=== PATIENT | female | born 1985 | race Caucasian/White ===

== ENCOUNTER → 2018-11-30 | Outpatient (CLI) | payer BC, MEDICAID ==
--- NOTE | 2018-11-30 14:24 | Diagnostic Imaging Report ---
INDICATION: Palpable lump in the right breast. Patient also describes skin discoloration. COMPARISON: No prior mammograms are available for comparison. This is a baseline study. TECHNIQUE: 2D and 3D bilateral diagnostic mammography was performed with CAD. FINDINGS: Scattered fibroglandular densities are identified bilaterally. A lobulated circumscribed density in the upper outer right breast approximately 12 cm from the nipple is noted. This could represent the area of palpable abnormality. This most resembles a lymph node. No other masses are seen. No suspicious microcalcifications are identified. The axillae are unremarkable. IMPRESSION: There is a probable intramammary lymph node in the upper outer right breast 12 cm from the nipple. Further evaluation of this area with ultrasound is recommended for confirmation. The study is otherwise unremarkable. ACR BI-RADS Category 0: Incomplete. (Needs additional imaging evaluation). Result letter will be mailed to the patient. Note: At least 10% of breast cancer is not imaged by mammography. Dictated by: Dictated on workstation # [id number]
--- NOTE | 2018-11-30 14:26 | Diagnostic Imaging Report ---
INDICATION: Palpable lump in the right breast. COMPARISON: Correlation is made with the diagnostic mammogram from earlier this same day. TECHNIQUE: Sonographic interrogation of the upper outer right breast was performed. FINDINGS: There is a lymph node at the 10 o'clock location of the right breast approximately 14 cm from the nipple. This measures 1.7 x 1.1 x 1.5 cm. This does contain a fatty hilum. This corresponds in size and location to the mammographic density. No other sonographic abnormalities are seen. IMPRESSION: An intraparenchymal lymph node at the 10 o'clock location of the right breast 14 cm from the nipple corresponds with the palpable and mammographic density. ACR BI-RADS Category 2: Benign findings. Dictated by: Dictated on workstation # [id number]
== END ==
LOC: RAD 12:49
PROVIDERS: ATTEND Registered Nurse
DX: N63.11 Unspecified lump in the right breast, upper outer quadrant (principal); L81.9 Disorder of pigmentation, unspecified; N63.31 Unspecified lump in axillary tail of the right breast; Z87.2 Personal history of diseases of the skin and subcutaneous tissue
CPT/HCPCS: 77066